=== PATIENT | female | born 1955 | race Caucasian/White ===

== ENCOUNTER 2023-10-03 10:27 | Emergency (ER) | payer BC ==
[~2023-10-03] VITALS: Ht 170.2 cm; Wt 64.0 kg
[2023-10-03 10:36] VITALS: BP 126/84; PULSE 84; RESP 16; TEMP 98.3; O2SAT 97
[2023-10-03] MEDS: TETANUS, DIPHTHERIA, PERTUSSIS VAC/PF 0.5ML (>10YR OLD) IM ONE (11:02)
[2023-10-03] MEDS: BACITRACIN ZINC OINT UDPKT TOP ONE (11:03)
[2023-10-03] MEDS: LIDOCAINE HCL/PF 1% 10 MG/ML 5ML VIAL INFIL ONE (11:03)
[2023-10-03] MEDS: ACETAMINOPHEN 500MG TABLET PO ONE (11:03)
[2023-10-03] MEDS ORDERED: SULF1TAB48 MT (11:09)
[2023-10-03] MEDS ORDERED: DOXY100T2 MT (11:09)
== END 2023-10-03 11:15 | disposition home or self-care (01) ==
LOC: ER 10:50
DX: L02.411 Cutaneous abscess of right axilla (principal); I10 Essential (primary) hypertension; W57.XXXA Bitten or stung by nonvenomous insect and other nonvenomous arthropods, initial encounter; Y93.89 Activity, other specified; Y92.89 Other specified places as the place of occurrence of the external cause; Y99.8 Other external cause status
CPT/HCPCS: 99283; 10060; 90715; 90471; J3490

== ENCOUNTER 2023-10-03 12:29 | Emergency (ER) | payer BC ==
[~2023-10-03] VITALS: Ht 162.6 cm; Wt 67.0 kg
[~2023-10-03 12:29] MED LIST: DOXY100T2 MT; SULF1TAB48 MT
[2023-10-03 12:49] VITALS: BP 121/74; PULSE 112; RESP 18; TEMP 98.5; O2SAT 99
[2023-10-03] MEDS ORDERED: LORAZEPAM 2MG/ML INJ IM ONE (13:00)
[2023-10-03] MEDS ORDERED: ONDANSETRON HCL 4MG/2ML INJ IM ONE (13:00)
== END 2023-10-03 13:17 | disposition left against medical advice (07) ==
LOC: ER 12:29
DX: R11.0 Nausea (principal); I10 Essential (primary) hypertension
CPT/HCPCS: 99283